=== PATIENT | male | born 1955 | race Two or more races ===

== ENCOUNTER 2025-05-08 15:00 | Emergency (ER) | payer MEDICARE ==
[~2025-05-08] VITALS: Ht 165.1 cm; Wt 90.9 kg
[2025-05-08 15:08] VITALS: BP 136/86; PULSE 82; RESP 18; TEMP 98.1; O2SAT 96
[2025-05-08] MEDS: IBUPROFEN 600 MG TABLET PO ONE (16:21)
[2025-05-08] MEDS: LIDOCAINE 1% 10 ML VIAL SQ ONE (16:21)
[2025-05-08] MEDS: PERTUSS(ACELL),DIPH,TET/PF 0.5 ML SYRINGE [ADULT] IM. ONE (16:21)
[2025-05-08] MEDS: BACITRACIN 0.9 GM PACKET OINTMENT TP ONE (16:22)
[2025-05-08] MEDS ORDERED: BACI28.410 TP (17:08)
[2025-05-08] MEDS ORDERED: DOXY-354 PO (17:08)
[2025-05-08] MEDS ORDERED: CEPH-558 PO (17:08)
[2025-05-08] MEDS ORDERED: ACET-66 PO (17:08)
== END 2025-05-08 17:24 | disposition home or self-care (01) ==
LOC: EMS 15:00
DX: S81.811A Laceration without foreign body, right lower leg, initial encounter (principal); I10 Essential (primary) hypertension; F17.210 Nicotine dependence, cigarettes, uncomplicated; F10.90 Alcohol use, unspecified, uncomplicated; W26.8XXA Contact with other sharp object(s), not elsewhere classified, initial encounter; Y93.89 Activity, other specified; Y92.89 Other specified places as the place of occurrence of the external cause; Y99.8 Other external cause status; Y90.9 Presence of alcohol in blood, level not specified
CPT/HCPCS: 99283; 12004; J3490